=== PATIENT | male | born 1955 | race Caucasian/White ===

== ENCOUNTER → 2023-05-22 | Outpatient (CLI) | payer OTHER, MEDICARE | LOC: M PLAIMG 10:26 | PROVIDERS: ATTEND Nurse Practitioner Family | DX: J45.40 Moderate persistent asthma, uncomplicated (principal); R91.8 Other nonspecific abnormal finding of lung field ==

== ENCOUNTER → 2023-05-31 | Outpatient (CLI) | payer OTHER, MEDICARE | LOC: M PLAIMG 13:29 | PROVIDERS: ATTEND Nurse Practitioner Family | DX: J45.40 Moderate persistent asthma, uncomplicated (principal); R91.8 Other nonspecific abnormal finding of lung field; J47.9 Bronchiectasis, uncomplicated; I25.10 Atherosclerotic heart disease of native coronary artery without angina pectoris ==

== ENCOUNTER → 2024-05-22 | Outpatient (CLI) | payer OTHER | LOC: M PLAIMG 16:09 | PROVIDERS: ATTEND Physician Assistant | DX: J45.901 Unspecified asthma with (acute) exacerbation (principal) ==